=== PATIENT | female | born 1940 | race Caucasian/White ===

== ENCOUNTER 2018-01-23 17:10 | Outpatient (CLI) | payer OTHER ==
[~2018-01-23 17:10] MED LIST: CALAN SR 120MG120 MG; HYZAAR 100-251 UDTAB; NEURONTIN800 MG; PHENOBARBITAL60 MG
== END 2018-01-23 17:16 | disposition home or self-care (01) ==
LOC: LAB 17:10
DX: N39.0 Urinary tract infection, site not specified (principal)

== ENCOUNTER 2019-12-09 08:31 | Outpatient (CLI) | payer OTHER | END 2019-12-09 08:37 | disposition home or self-care (01) | LOC: RAD 08:31 | DX: R13.19 Other dysphagia (principal) ==

== ENCOUNTER 2019-12-31 11:45 | Outpatient (CLI) | payer OTHER ==
[~2019-12-31] VITALS: Ht 127 cm; Wt 68.0 kg
== END 2019-12-31 14:59 | disposition home or self-care (01) ==
LOC: OFIC 805 11:45
DX: R07.0 Pain in throat (principal); J30.89 Other allergic rhinitis; H61.23 Impacted cerumen, bilateral; R09.81 Nasal congestion
CPT/HCPCS: 31231; 99203; G0463

== ENCOUNTER 2020-05-13 08:35 | Outpatient (CLI) | payer OTHER | END 2020-05-13 08:42 | disposition home or self-care (01) | LOC: RAD 08:35 | PROVIDERS: ATTEND Orthopaedic Surgery | DX: S52.551A Other extraarticular fracture of lower end of right radius, initial encounter for closed fracture (principal) ==

== ENCOUNTER 2020-08-14 08:57 | Outpatient (CLI) | payer OTHER | END 2020-08-14 09:14 | disposition home or self-care (01) | LOC: LAB 08:57 | PROVIDERS: ATTEND Orthopaedic Surgery | DX: E56.1 Deficiency of vitamin K (principal) ==

== ENCOUNTER 2023-09-03 16:47 | Emergency (ER) | payer OTHER ==
[~2023-09-03] VITALS: Ht 154.9 cm; Wt 63.5 kg
== END 2023-09-03 22:25 | disposition home or self-care (01) ==
LOC: ER 16:47
DX: S09.8XXA Other specified injuries of head, initial encounter (principal); W18.39XA Other fall on same level, initial encounter; Y93.89 Activity, other specified; Y92.010 Kitchen of single-family (private) house as the place of occurrence of the external cause